=== PATIENT | female | born 1970 | race Caucasian/White ===

== ENCOUNTER 2017-09-30 10:40 | Emergency (ER) | payer BC ==
[2017-09-30] MEDS ORDERED: HYDROmorphone 0.5 MG/0.5 ML Syringe IM ONE (11:32)
--- NOTE | 2017-09-30 12:04 | EDM.PDOC ---
ED HPI GENERAL MEDICAL PROBLEM - General Chief Complaint: Abdominal Pain Stated Complaint: RIGHT UPPER SIDE PAIN,DIARRHEA,CHILLS Time Seen by Provider: 09/30/17 11:20 Source of Information: Reports: Patient History Limitations: Reports: No Limitations - History of Present Illness INITIAL COMMENTS - FREE TEXT/NARRATIVE: 47-year-old female with right upper quadrant pain and spasms for the last 3 days. It is making it difficult to sleep. No fevers or chills. No significant nausea or vomiting. No recent trauma. She did have diarrhea through the weekend but that seems to have improved. She does not have a history of this type of pain in the past. She has numerous other chronic medical problems such as rheumatoid arthritis and Sjogren's disease. Onset: Unknown/Unsure Duration: Day(s): (Symptoms have been waxing and waning for 3 days) Location: Reports: Abdomen Quality: Reports: Sharp, Stabbing Severity: Moderate Worsens with: Reports: Other (Deep breath causes increased pain) Associated Symptoms: Reports: Chest Pain. Denies: Nausea/Vomiting, Shortness of Breath Right Upper Abdomen Pain Score (Numeric/FACES): 10 - Related Data Allergies Allergy/AdvReac Type Severity Reaction Status Date / Time methotrexate Allergy Shortness Verified 09/30/17 10:59 of Breath Home Meds: Home Meds Aspirin [Halfprin] 81 mg PO DAILY 09/30/17 [History] Estradiol 0.5 mg PO DAILY 09/30/17 [History] Omeprazole 40 mg PO DAILY 09/30/17 [History] Zonisamide [Zonegran] 400 mg PO BEDTIME 09/30/17 [History] Past Medical History Respiratory History: Reports: Asthma, Pneumonia, Recurrent, Other (See Below) Other Respiratory History: watching spot on lungs Genitourinary History: Reports: UTI, Recurrent, Other (See Below) Other Genitourinary History: self caths bladder disorder. 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 Dermatologic History: Reports: Other (See Below) Other Dermatologic History: sebhoric dermatitis - Infectious Disease History Infectious Disease History: Reports: Chicken Pox - Past Surgical History GI Surgical History: Reports: Other (See Below) Other GI Surgeries/Procedures: multiple laps spleenectomy Female Surgical History: Reports: Hysterectomy, Salpingo-Oophorectomy Endocrine Surgical History: Reports: Other (See Below) Other Endocrine Surgeries/Procedures: sjogrens Musculoskeletal Surgical History: Reports: Other (See Below) Other Musculoskeletal Surgeries/Procedures:: lumbar fusion 2 discs l arm elbow Social & Family History - Tobacco Use Smoking Status *Q: Never Smoker Second Hand Smoke Exposure: No - Caffeine Use Caffeine Use: Reports: Coffee, Soda - Alcohol Use Days Per Week of Alcohol Use: 1 Number of Drinks Per Day: 1 Total Drinks Per Week: 1 - Recreational Drug Use Recreational Drug Use: No ED ROS GENERAL - Review of Systems Review Of Systems: See Below Constitutional: Denies: Fever, Chills HEENT: Reports: No Symptoms Respiratory: Reports: Pleuritic Chest Pain Cardiovascular: Denies: Dyspnea on Exertion, Palpitations Endocrine: Reports: Fatigue (Patient is tired because she hasn't been able to sleep) GI/Abdominal: Reports: Abdominal Pain, Diarrhea : Reports: No Symptoms Musculoskeletal: Reports: No Symptoms Neurological: Denies: Headache Psychiatric: Reports: No Symptoms ED EXAM, GI/ABD - Physical Exam Exam: See Below Exam Limited By: No Limitations General Appearance: Alert, Mild Distress (Patient is significantly uncomfortable with palpation of the right upper quadrant, and intermittently when the pain increases) Eyes: Bilateral: Normal Appearance Respiratory/Chest: No Respiratory Distress, Lungs Clear Cardiovascular: Regular Rate, Rhythm GI/Abdominal Exam: Soft, Guarding, Tender, Other (Very tender to palpation in the right upper quadrant with guarding) Extremities: Normal Inspection. No: Pedal Edema Neurological: Alert, Oriented Psychiatric: Normal Affect, Normal Mood Skin Exam: Warm, Dry Course - Vital Signs Last Recorded V/S: Last Vital Signs Temp 96.8 F 09/30/17 14:30 Pulse 56 L 09/30/17 14:30 Resp 16 09/30/17 14:30 BP 103/48 L 09/30/17 14:30 Pulse Ox 96 09/30/17 14:30 - Orders/Labs/Meds Orders: Active Orders 24 hr Category Date Time Status Saline Lock Insert [OM.PC] Routine Oth 09/30/17 12:59 Ordered Labs: Laboratory Tests 09/30/17 09/30/17 Range/Units 11:42 11:42 WBC 12.1 H (4.5-11.0) K/uL RBC 4.97 (3.30-5.50) M/uL Hgb 14.1 (12.0-15.0) g/dL Hct 41.1 (36.0-48.0) % MCV 83 (80-98) fL MCH 28 (27-31) pg MCHC 34 (32-36) % Plt Count 382 (150-400) K/uL Neut % (Auto) 46 (36-66) % Lymph % (Auto) 41 (24-44) % Harvey % (Auto) 10 H (2-6) % Eos % (Auto) 3 (2-4) % Baso % (Auto) 0 (0-1) % Sodium 144 (140-148) mmol/L Potassium 3.8 (3.6-5.2) mmol/L Chloride 107 (100-108) mmol/L Carbon Dioxide 27 (21-32) mmol/L Anion Gap 9.7 (5.0-14.0) mmol/L BUN 15 (7-18) mg/dL Creatinine 1.0 (0.6-1.0) mg/dL Est Cr Clr Drug Dosing 67.63 mL/min Estimated GFR (MDRD) 59 L (>60) Glucose 91 (74-106) mg/dL Calcium 9.1 (8.5-10.1) mg/dL Total Bilirubin 0.2 (0.2-1.0) mg/dL AST 17 (15-37) U/L ALT 20 (12-78) U/L Alkaline Phosphatase 102 (46-116) U/L Total Protein 7.1 (6.4-8.2) g/dL Albumin 3.7 (3.4-5.0) g/dL Globulin 3.4 (2.3-3.5) g/dL Albumin/Globulin Ratio 1.1 L (1.2-2.2) Lipase 87 (73-393) U/L Meds: Medications Discontinued Medications Generic Name Dose Route Start Last Admin Trade Name Freq PRN Reason Stop Dose Admin Hydromorphone HCl 0.5 mg 09/30/17 11:32 09/30/17 11:41 Dilaudid IM 09/30/17 11:33 0.5 mg ONETIME ONE Administration Hydromorphone HCl 1 mg 09/30/17 12:13 09/30/17 12:30 Dilaudid IM 09/30/17 12:14 1 mg ONETIME ONE Administration Sodium Chloride 1,000 mls @ 500 mls/hr 09/30/17 13:15 09/30/17 13:58 Normal Saline IV 500 mls/hr ASDIRECTED MARCY Administration Sodium Chloride 80 mls @ 3 mls/sec 09/30/17 13:21 09/30/17 13:35 Normal Saline IV 09/30/17 13:22 3 mls/sec ONETIME ONE Administration Iopamidol 99 ml 09/30/17 13:21 09/30/17 13:35 Isovue-300 (61%) IV 100 ml . DIRECTED PRN Administration RADIOLOGY EXAM Ondansetron HCl 4 mg 09/30/17 14:05 09/30/17 14:10 Zofran Odt PO 09/30/17 14:06 4 mg ONETIME ONE Administration Sodium Chloride 10 ml 09/30/17 12:59 09/30/17 13:08 Saline Flush FLUSH 10 ml ASDIRECTED PRN Administration Keep Vein Open Sodium Chloride 10 ml 09/30/17 13:21 Saline Flush FLUSH ONETIME PRN PER RADIOLOGY PROTOCOL - Re-Assessments/Exams Free Text/Narrative Re-Assessment/Exam: 09/30/17 12:04 CBC, CMP and lipase were obtained. 09/30/17 13:13 Labs were all normal other than a mildly elevated white count at 14.2 and a borderline GFR at 59. She was given 0.5 mg of Dilaudid IM, followed by 1 mg of Dilaudid. A right upper quadrant ultrasound was done and was normal but she still persisted with intense pain. An IV was started and an IV contrast enhanced abdomen and pelvis CT was obtained. 09/30/17 14:[address] was normal. Patient will be discharged on Flexeril and occasional Vicodin for the next 2-3 days and can return if not improving satisfactorily. Departure - Departure Time of Disposition: 15:06 Disposition: Home, Self-Care 01 Condition: Good Clinical Impression: Abdominal pain Qualifiers: Abdominal location: right upper quadrant Qualified Code(s): R10.11 - Right upper quadrant pain - Discharge Information Instructions: Abdominal Pain, Adult, [id number] Referrals: Fabio De MD [Primary Care Provider] - Forms: ED Department Discharge Care Plan Goals: Take medications as prescribed, a heating pad to the area may help and stay hydrated. Increase activity as tolerated and recheck in 2-3 days if not improving satisfactorily, or return sooner if worsening or concerns. - My Orders Last 24 Hours: My Active Orders 09/30/17 12:59 Saline Lock Insert [OM.PC] Routine - Assessment/Plan Last 24 Hours: My Active Orders 09/30/17 12:59 Saline Lock Insert [OM.PC] Routine
[2017-09-30] MEDS ORDERED: HYDROmorphone 1 MG/ML Syringe IM ONE (12:13)
[2017-09-30] MEDS ORDERED: Sodium Chloride 0.9% 10 ML Syringe FLUSH PRN ×2 (12:59→13:21)
[2017-09-30] MEDS ORDERED: Sodium Chloride 0.9% 1,000 ML IV SCH (13:15)
--- NOTE | 2017-09-30 13:18 | US ---
LIMITED RIGHT UPPER QUADRANT ULTRASOUND Clinical history: Right upper quadrant pain Findings: Real-time images of the right upper quadrant show no focal hepatic mass or biliary dilatati on. The echotexture appears normal. The gallbladder is free of internal echoes or wall thickening. It is nondistended. Patient had some right upper quadrant tenderness laterally but not specifically ove r the gallbladder. The visualized pancreas is free of mass. Right kidney shows no stones or hydroneph rosis. There is no free fluid Impression: Essentially negative right upper quadrant ultrasound
[2017-09-30] MEDS ORDERED: Sodium Chloride 0.9% 80 ML IV ONE (13:21)
[2017-09-30] MEDS ORDERED: Iopamidol 612 MG/ML 100 ML Bottle IV PRN (13:21)
--- NOTE | 2017-09-30 14:02 | CT ---
CT CHEST ABDOMEN AND PELVIS WITH CONTRAST Clinical history: Abdominal pain Technique: Axial images are obtained from the thoracic inlet to the pelvic floor with IV contrast enh ancement. The coronal images were reconstructed. Findings: The lung greco are free of pulmonary masses or infiltrates. No mediastinal mass or lymphad enopathy is identified. The aorta has a normal contour. No obvious filling defects are identified in the pulmonary arteries. There are no pleural effusions. The liver has a normal contour and density. The gallbladder has a normal appearance. The spleen is ab sent. The pancreas is free of mass or inflammatory change. Kidneys are free of mass, stones or hydron ephrosis. Ureters have normal course and caliber. Bladder has normal contour. Appendix is normal cont our. Abdominal pelvic fat planes along pelvic side romano are well demarcated. The aorta has a normal contour. No retroperitoneal lymphadenopathy is identified. Previous lumbar fixation Impression: Absent spleen No mass adenopathy or inflammatory change
[2017-09-30] MEDS ORDERED: Ondansetron 4 MG Tab.DIS PO ONE (14:05)
== END 2017-09-30 15:06 | disposition home or self-care (01) ==
LOC: JP.ED 10:40
DX: R10.11 Right upper quadrant pain (principal); Z88.8 Allergy status to other drugs, medicaments and biological substances; Z79.82 Long term (current) use of aspirin; Z79.899 Other long term (current) drug therapy
CPT/HCPCS: 36415; 71260; 74177; 76705; 80053; 83690; 85025; 96360; 96361; 96372; 99284; A9270; J1170; J7030; J7040; J7050; Q9967